=== PATIENT | female | born 1995 | race American Indian/Alaskan Native ===

== ENCOUNTER 2020-10-18 22:15 | Emergency (ER) | payer MEDICAID ==
[2020-10-18] MEDS ORDERED: Sodium Chloride 0.9% 10 ML Syringe FLUSH PRN (22:26)
[2020-10-18] MEDS ORDERED: Sodium Chloride 0.9% 1,000 ML IV SCH (22:30)
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
--- NOTE | 2020-10-19 08:03 | CR ---
Right knee: 4 views of the right knee were obtained. Comparison: No prior knee study. Medial and lateral joint spaces are fairly well maintained. No joint effusion is seen. No acute fracture or dislocation is seen. Impression: 1. Nothing acute is seen on right knee exam. Diagnostic code #1
--- NOTE | 2020-10-19 08:09 | CT ---
Head CT Technique: Multiple axial sections through the brain were obtained. Intravenous contrast was not utilized. Reconstructed coronal and sagittal images were obtained. Comparison: No prior intracranial imaging is available. Findings: Ventricles along with basal cisterns and sulci over the convexities are within normal limits for the patient's age. No abnormal parenchymal densities are seen. No evidence of intracranial hemorrhage is seen. No midline shift or mass-effect is seen. Bone window settings were reviewed. No acute calvarial abnormality is appreciated. Visualized paranasal sinuses and mastoid sinuses show nothing acute. Impression: 1. Nothing acute is seen on noncontrast head CT study. Diagnostic code #1 I agree with preliminary report from [facility], finalized on 10/19/20, 3:34 AM CDT, code 1
--- NOTE | 2020-10-19 08:12 | CT ---
CT facial bones Technique: Multiple axial sections through the maxillofacial structures were obtained. Motion artifact is seen within the mandible. Reconstructed coronal and sagittal images were obtained. Comparison: No prior facial imaging is available. Findings: Minimal mucosal thickening is seen within the ethmoid sinuses. No acute paranasal sinus findings are seen. Right and left globes are symmetric. No retrobulbar abnormality is appreciated. Mastoid sinuses are clear. Motion artifact is noted within the mandible. No definite facial bone fracture is appreciated. Impression: 1. Minimal mucosal thickening within the ethmoid sinuses. 2. Motion artifact within the mandible. 3. No definite acute facial bone fracture is appreciated. Note: If patient remains symptomatic, follow-up study could then be considered. Diagnostic code #2 I agree with preliminary report from [facility], finalized on 10/19/20, 3:36 AM CDT, code 1
== END 2020-10-19 08:25 | disposition home or self-care (01) ==
LOC: JD.ED 22:15
DX: S80.01XA Contusion of right knee, initial encounter (principal); S00.83XA Contusion of other part of head, initial encounter; F10.120 Alcohol abuse with intoxication, uncomplicated; Y90.0 Blood alcohol level of less than 20 mg/100 ml; Y04.0XXA Assault by unarmed brawl or fight, initial encounter
CPT/HCPCS: 36415; 70450; 70486; 73564; 80053; 80307; 84703; 85025; 99284; J7030